=== PATIENT | female | born 2005 | race African-American/Black ===

== ENCOUNTER 2025-01-07 17:34 | Emergency (ER) | payer OTHER, SELFPAY ==
[2025-01-07 17:39] VITALS: BP 116/82
[2025-01-07 18:19] LABS: Hematocrit 32.6 % (37.0-47.0); Hemoglobin 11.2 g/dL (12.0-16.0); Mean Corp Hgb Conc. 34.4 g/dL (33.0-37.0); Mean Corpuscular Volume 83.0 fL (81.0-99.0); Nucleated Red Blood Cells % 0 %; Platelet Count 238 10^3/uL (130-400); Red Cell Dist. Width 12.3 % (11.5-14.5)
[2025-01-07 18:26] LABS: ALT (SGPT) 29 U/L (0-35); AST (SGOT) 25 U/L (14-36); Albumin 4.1 g/dl (3.5-5.0); Alkaline Phosphatase 52 U/L (38-126); Blood Urea Nitrogen 15 mg/dl (7-17); Calcium 9.2 mg/dl (8.4-10.2); Carbon Dioxide 26 mmol/L (22-30); Chloride 108 mmol/L (98-107); Glucose 90 mg/dl (70-99); Potassium 4.1 mmol/L (3.5-5.1); Sodium 136 mmol/L (135-145); Total Protein 7.1 g/dl (6.3-8.2); eGFR > 60.00
--- NOTE | 2025-01-07 18:44 | ED.GENMED ---
History of Present Illness
General
Chief Complaint: Problems
Source: patient
Exam Limitations: none
Time Seen by Provider: 01/07/25 18:31
History of Present Illness
History of Present Illness:
19yo female with a history of asthma presenting with her retirement staff member for evaluation of vaginal bleeding. Patient is currently 6 weeks based on her last menstrual period. She had a positive test about 2 weeks
ago. She wiped today and noticed some pink on the toilet paper. She then had some red blood trickle down her leg. She did not pass any clots or tissue. She became worried that she was having a miscarriage so came immediately to the ED. She is
otherwise feeling well and denies any abdominal pain, dizziness, syncope, urinary symptoms. She has not had her initial OB appointment yet this .
Past History
Social History
Tobacco: Non-smoker
Phy Exam
General Physical Exam
General Presentation: well appearing and no apparent distress
General Skin: warm and dry
General Habitus: normal
General Mental: alert
ENT Exam
ENT Exam: normocephalic
Pulmonary Exam
Pulmonary Exam: no respiratory distress
Gastrointestinal Exam
Gastrointestinal Exam: non tender, soft and non distended
Neurological Exam
Neurological Exam: alert
Ster[place] Coma Scale
Eye Opening: Spontaneous
Verbal Response: Oriented
Motor Response: Obeys Commands
GCS Total Score: 15
Skin Exam
Skin Exam: normal color and warm/dry
Psychiatric Exam
Psychiatric Exam: normal mood/affect
Course
Orders/Labs/Results
Orders:
Orders
01/07/25 18:01
Type And Crossmatch [Type+Screen] Urgent
Beta HCG Quantitative Urgent
Is this a screen?: No
Comment: vaginal bleeding 6 weeks preg
Complete Blood Count/With Diff Urgent
Comprehensive Metabolic Panel Urgent
01/07/25 18:44
US W Transvaginal Urgent
Reason For Exam: vaginal bleeding, 6 weeks preg
Abnormal Lab Results
01/07/25
18:01
RBC 3.93 L 10^6/uL
(4.20-5.40)
Hgb 11.2 L g/dL
(12.0-16.0)
Hct 32.6 L %
(37.0-47.0)
MPV 11.2 H fL
(7.4-10.4)
Chloride 108 H mmol/L
(98-107)
01/07/25 18:01
01/07/25 18:01
Vital Signs
Initial and Last Documented VS:
Initial Vital Signs
Temp Pulse Resp BP Pulse Ox
98.0 F 93 16 116/82 98
01/07/25 17:39 01/07/25 17:39 01/07/25 17:39 01/07/25 17:39 01/07/25 17:39
Last Documented Vital Signs
Temp Pulse Resp BP Pulse Ox
98.0 F 93 16 122/75 100
01/07/25 17:39 01/07/25 17:39 01/07/25 17:39 01/07/25 19:00 01/07/25 19:15
Information
Weeks gestation: N/A
Location: N/A
MDM/Problems Addressed
Differential Diagnosis Includes:
19yoF here with small volume vaginal bleeding that began this evening. Currently 6 weeks by LMP. No abdominal pain. VSS. Differential diagnosis includes but is not limited to: threatened miscarriage, miscarriage, ectopic ,
subchorionic hemorrhage
Initial ED plan: Check labs including quantitative HCG and blood typing as well as pelvic ultrasound.
*Pulse Oximetry
SaO2: 98
Oxygen Mode of Delivery: Room air
Patient hypoxic: no (98%)
*Critical Care Note
Total Time (30-74mins, 75-104mins- exclusive of procedures): Not Applicable
Update Note
Update Note:
HCG around 1300. Blood type A+, no indication for Rhogam. US shows 'Irregular shaped gestational sac in the endometrial canal with a diameter predicting a gestational age 5 weeks 1 day.' No pole noted, likely 2/2 early dates. No pelvic free
fluid or adnexal mass. Discussed findings with patient and diagnosis of threatened miscarriage. Advised f/u with her OBGYN for serial HCGs/ultrasounds. Patient discharged in stable condition.
ED Attending Note
-
Portions of this chart may have been created with voice recognition software.� Occasional wrong word or��sound alike� substitutions may have occurred due to the inherent limitations of voice recognition software.
Discharge Plan
Departure
Patient Disposition: Home (Routine Discharge)
Date of Disposition: 01/07/25
Time of Disposition: 21:50
Patient with high blood pressure during this ER visit?: No
Discharge Problem:
Threatened miscarriage in early
Instructions: Threatened Miscarriage (DC)
Prescriptions:
No Action
methylphenidate HCl [Concerta] 27 mg Tablet Extended Release 24hr
27 mg PO DAILY
Referrals:
Eric Briceno MD [Active, Gynecology]
UNKNOWN - PT DOES,NOT KNOW [Unknown Provider]
Activity Restrictions/Additional Instructions:
Please call your OB team on Friday for follow-up. You will need repeat blood work and ultrasounds to monitor your .
Return to the ER with any new or worsening symptoms including if you saturate through >2 pads/hour for >2 hours.
Interventions
Interventions:
*Risk Screen - Suicide Last Done: 01/07/25 18:58
*General Assessment Last Done: 01/07/25 18:58
*Neglect/Abuse Screening Last Done: 01/07/25 18:58
*ED- Fall Risk Assessment Last Done: 01/07/25 18:58
*ED COVID-19 Vaccine History Last Done: 01/07/25 18:58
*Nursing Disposition Last Done: 01/07/25 22:03
ED-Female Genitourinary Assessment Last Done: 01/07/25 18:58
Discharge Date and Time
Discharge Date/Time: 01/07/25 22:05
Print Language: ARMENIAN
[2025-01-07 18:49] LABS: Beta HCG Quantitative 1323.70 mIU/ml
[2025-01-07 18:56] VITALS: BP 122/66
[2025-01-07 19:00] VITALS: BP 122/75
== END 2025-01-07 22:05 | disposition home or self-care (01) ==
LOC: EMR 17:34
PROVIDERS: Emergency Medicine; EMERGENCY PHYSICIAN Emergency Medicine
DX: O20.0 Threatened abortion (principal); O99.511 Diseases of the respiratory system complicating pregnancy, first trimester; J45.909 Unspecified asthma, uncomplicated; Z3A.01 Less than 8 weeks gestation of pregnancy
CPT/HCPCS: 99284; 76801; 76817; 80053; 84702; 85025; 86850; 86900; 86901

== ENCOUNTER 2025-04-04 14:33 | Emergency (ER) | payer OTHER, SELFPAY ==
[2025-04-04 14:40] VITALS: BP 138/53
--- NOTE | 2025-04-04 15:35 | ED.GENMED ---
History of Present Illness
General
Chief Complaint: Female Anesthesiology Medical Doctor/Gu symptoms
Source: patient
Exam Limitations: none
Time Seen by Provider: 04/04/25 15:03
Nursing documentation reviewed up to this point in time: agreed with
History of Present Illness
History of Present Illness:
Patient is a 19-year-old who presents the emergency department for evaluation of right pelvic pain and vaginal bleeding. Patient states that she has had intermittent lower abdominal cramping/discomfort over the past 2 weeks however felt pain
in her right pelvic region was worse today. She describes it as intermittent and sharp. She also reports intermittent vaginal bleeding for the past 1.5 months. Currently, the amount of vaginal bleeding has decreased significantly however she
states it was much heavier a few days ago. Patient denies any fever or chills. No nausea/vomiting. No dysuria or hematuria. She denies any abnormal vaginal discharge. She is currently sexually active with 1 partner. She states that her appetite
has been normal.
Of note�patient states she had a spontaneous miscarriage at the end of January and was seen in our emergency department. She has since been seen by [facility] and was started on the Depo shot. She received her first Depo shot on
02/16.
Past History
Social History
Tobacco: Non-smoker
Review of Systems
Review of Systems
Allergies reviewed?: Yes
All Other Systems: ROS reviewed and negative except as documented in HPI and ROS
Phy Exam
Physical Exam
Physical Exam:
Vitals: Patient's vital signs are stable. Afebrile
General: Patient is well appearing, in no distress
Skin: Warm and dry, no rashes or lesions
Head: Normocephalic, atraumatic
Eyes: Sclera nonicteric. EOMs intact. No nystagmus.
Throat: Protecting airway
Neck: Normal ROM, no cervical spine tenderness, no meningismus
Cardiac: Regular rate and rhythm, no murmurs.
Pulm: Normal respiratory effort. Lungs clear bilaterally
.
Abdomen: Abdomen soft. Mild reproducible tenderness in right region. No rebound or guarding.
Pelvic:External genitalia normal appearing without lesions, ulcerations, or adenopathy. Vaginal vault without lesions or ulcerations. Very minimal amount of dark blood in vault. Cervix appears normal to inspection.
Extremities: No evidence of cyanosis or edema
Neuro: AAOx3. Grossly intact
Psychiatric: Normal affect.
Course
Orders/Labs/Results
Orders:
Orders
04/04/25 15:24
Test Result ONCE
Pelvis & Transvaginal US [US Pelvis W Transvag Combined] Urgent
Comment: miscarriage 01/2025
Reason For Exam: right pelvic pain and bleeding
04/04/25 15:26
0.9% Sodium Chloride 1000 ml [Nss] 1,000 ml IV BOLUS
Ketorolac [Toradol] 15 mg IV NOW STA
04/04/25 15:43
Complete Blood Count/With Diff Urgent
Comprehensive Metabolic Panel Urgent
HCG, Serum Qualitative Screen Urgent
04/04/25 18:18
Urinalysis Reflex To Culture Urgent
Date Specimen was Collected: 04/04/25
Time Specimen was Collected: 16:44
Urine Microscopic Reflex Cult Urgent
Urine Culture Urgent
[facility] Source: U
Specimen Description:
Date Specimen was Collected: 04/04/25
Time Specimen was Collected: 16:44
04/04/25 18:19
Chlamydia/GC by PCR Urgent
[facility] Source: Vagina
Specimen Description:
Source:: VAGINA
Date Specimen was Collected: 04/04/25
Time Specimen was Collected: 18:17
Trichomonas - Wet Prep Urgent
[facility] Source: Vagina
Specimen Description:
Date Specimen was Collected: 04/04/25
Time Specimen was Collected: 18:17
Abnormal Lab Results
04/04/25 04/04/25
15:43 18:18
RBC 4.09 L 10^6/uL
(4.20-5.40)
Hgb 11.5 L g/dL
(12.0-16.0)
Hct 34.6 L %
(37.0-47.0)
MPV 11.2 H fL
(7.4-10.4)
Monocytes % 10.3 H %
(1.7-9.3)
Ur Occult Blood Reflex 4+ A
(Negative)
Urine RBC 3-6 A /HPF
(0-2)
Urine Bacteria (Reflex) Many A
(Negative)
04/04/25 15:43
04/04/25 15:43
Vital Signs
Initial and Last Documented VS:
Initial Vital Signs
Temp Pulse Resp BP Pulse Ox
98.4 F 95 18 138/53 98
04/04/25 14:40 04/04/25 14:40 04/04/25 14:40 04/04/25 14:40 04/04/25 14:40
Last Documented Vital Signs
Temp Pulse Resp BP Pulse Ox
98.4 F 79 18 129/81 98
04/04/25 14:40 04/04/25 18:23 04/04/25 14:40 04/04/25 18:23 04/04/25 18:23
MDM/Problems Addressed
Differential Diagnosis Includes:
Not limited to: Abnormal menstrual bleeding, medication side effect, symptomatic anemia, ovarian cyst, ovarian torsion, ectopic , threatened , etc.
MDM/Problems Addressed:
19-year-old female presenting with right pelvic pain and irregular vaginal bleeding over the past few weeks. Recent spontaneous approximately two months ago. Was recently started on Depo shot mid February. No fever, vomiting, or infectious
symptoms.
Vitals stable. On exam, patient appears well and is in no distress. She does have some mild tenderness in right pelvic region without rebound or guarding. No focal tenderness at McBurney�s point. Very minimal amount of bleeding noted on speculum
exam. Cardio/pulmonary assessment unremarkable.
Labs unremarkable. No leukocytosis. Hemoglobin stable. HCG negative. Pelvic ultrasound shows no abnormal findings. No evidence of ovarian torsion.
I did send STD swabs, which are pending.
Do not suspect acute intra-abdominal infectious process as patient is afebrile with no leukocytosis and benign abdominal exam.
Her symptoms have improved after dose of Toradol in ED. Abnormal bleeding may be secondary to Depo shot. She has contact with [facility] and will follow-up with them outpatient. Feel stable for discharge home with return
precautions. Patient comfortable with plan.
Chronic conditions affecting care:
History of spontaneous
Acute Exacerbation and/or Progression of Chronic Illness:
N/A
*Radiology
Radiology exam reviewed: radiology read reviewed
*Pulse Oximetry
SaO2: 98
Oxygen Mode of Delivery: Room air
Patient hypoxic: no
*EKG
Interpreted by ED Provider?: NA
*Agricultural Services Director Interpretation
Rate: Agricultural Services Director- N/A
*Critical Care Note
Total Time (30-74mins, 75-104mins- exclusive of procedures): Not Applicable
ED Attending Note
-
Portions of this chart may have been created with voice recognition software.� Occasional wrong word or��sound alike� substitutions may have occurred due to the inherent limitations of voice recognition software.
Discharge Plan
Departure
Patient Disposition: Home (Routine Discharge)
Date of Disposition: 04/04/25
Time of Disposition: 18:14
Patient with high blood pressure during this ER visit?: Yes
Condition: Good
Discharge Problem:
Vaginal bleeding, Pelvic pain
Instructions: Pelvic pain - ED (DC), BLOOD PRESSURE
Prescriptions:
No Action
methylphenidate HCl [Concerta] 27 mg Tablet Extended Release 24hr
27 mg PO DAILY
Referrals:
Dorothy Jones MD [Active, Gynecology] - Next open appointment
UNKNOWN - PT NOT,INTERVIEWE [Family Provider]
Activity Restrictions/Additional Instructions:
RETURN TO THE EMERGENCY DEPARTMENT ANY FEVER, PERSISTENT/WORSENING PELVIC PAIN, PERSISTENT HEAVY VAGINAL BLEEDING, PASSING LARGE CLOTS, INTRACTABLE VOMITING, WORSENING IN CURRENT SYMPTOMS, OR ANY OTHER CONCERNS
- As discussed your lab work showed no acute abnormalities today in the emergency department. Your has was negative. Your ultrasound showed no acute abnormalities of the pelvis/ovaries.
- Please stay well-hydrated. You can take Motrin and/or Tylenol as needed for pain. Please stay well-hydrated.
- We will contact you if your infection or your STD test is positive.
- Please follow-up with [facility] with next available appointment for further evaluation. Your abnormal vaginal bleeding may be related to your Depo shot.
Monitor your symptoms closely and return to the emergency department with any acute worsening/new symptoms or any other concerns
Interventions
Interventions:
*Risk Screen - Suicide Last Done: 04/04/25 14:34
*General Assessment Last Done: 04/04/25 14:40
*Neglect/Abuse Screening Last Done: 04/04/25 14:40
*ED COVID-19 Vaccine History Last Done: 04/04/25 15:53
*ED Influenza Vaccine History Last Done: 04/04/25 15:53
[facility] Risk Assessment Tool Last Done: 04/04/25 18:23
*Nursing Disposition Last Done: 04/04/25 18:23
ED-Female Genitourinary Assessment Last Done: 04/04/25 15:53
Discharge Date and Time
Discharge Date/Time: 04/04/25 18:24
Print Language: KOREAN
[2025-04-04] MEDS: NSS 1000 IV (15:47)
[2025-04-04] MEDS: TORADOL 15 MG IV (15:48)
[2025-04-04 15:51] LABS: Hematocrit 34.6 % (37.0-47.0); Hemoglobin 11.5 g/dL (12.0-16.0); Mean Corp Hgb Conc. 33.2 g/dL (33.0-37.0); Mean Corpuscular Volume 84.6 fL (81.0-99.0); Nucleated Red Blood Cells % 0 %; Platelet Count 226 10^3/uL (130-400); Red Cell Dist. Width 11.9 % (11.5-14.5)
[2025-04-04 15:58] LABS: HCG, Serum Qualitative Screen Negative
[2025-04-04 16:11] LABS: ALT (SGPT) 17 U/L (0-35); AST (SGOT) 20 U/L (14-36); Albumin 4.0 g/dl (3.5-5.0); Alkaline Phosphatase 50 U/L (38-126); Blood Urea Nitrogen 13 mg/dl (7-17); Calcium 9.0 mg/dl (8.4-10.2); Carbon Dioxide 27 mmol/L (22-30); Chloride 107 mmol/L (98-107); Glucose 97 mg/dl (70-99); Potassium 4.1 mmol/L (3.5-5.1); Sodium 136 mmol/L (135-145); Total Protein 7.1 g/dl (6.3-8.2); eGFR > 60.00
[2025-04-04 18:23] VITALS: BP 129/81
[2025-04-04 18:31] LABS: Urine Character Clear (Clear)
[2025-04-04 18:42] LABS: Urine Squamous Cell 16-20 /LPF (Few)
[2025-04-04 18:43] LABS: Urine White Cell 0-2 /HPF (0-5)
== END 2025-04-04 18:24 | disposition home or self-care (01) ==
LOC: EMR 14:33
PROVIDERS: Physician Assistant; EMERGENCY PHYSICIAN Emergency Medicine
DX: R10.21 Pelvic and perineal pain right side (principal); N93.9 Abnormal uterine and vaginal bleeding, unspecified
CPT/HCPCS: 96374; 96361; 99284; 76830; 76856; 80053; 81003; 81015; 84703; 85025; 87086; 87210; 87491; 87591